=== PATIENT | female | born 1955 | race Caucasian/White ===

== ENCOUNTER → 2016-05-05 | Outpatient (CLI) | payer BC ==
[~2016-05-05] MED LIST: ARMOUR THYROID60 MG PO; ASPIR 8181 MG PO; LISINOPRIL40 MG PO; METOPROLOL TART25 MG PO; PRILOSEC OTC20 MG PO; REGLAN10 MG PO; SYNTHROID25 MCG PO
== END ==
LOC: MAMO 08:50
DX: Z12.31 Encounter for screening mammogram for malignant neoplasm of breast (principal)
CPT/HCPCS: G0202

== ENCOUNTER → 2016-07-30 | Outpatient (CLI) | payer BC | LOC: EMI 09:39 | DX: M25.512 Pain in left shoulder (principal); R93.7 Abnormal findings on diagnostic imaging of other parts of musculoskeletal system | CPT/HCPCS: 73221 ==

== ENCOUNTER → 2020-10-09 | Outpatient (CLI) | payer BC | LOC: MAMO 07:40 | DX: Z12.31 Encounter for screening mammogram for malignant neoplasm of breast (principal); N64.89 Other specified disorders of breast | CPT/HCPCS: 77063; 77067 ==

== ENCOUNTER → 2020-10-12 | Outpatient (CLI) | payer BC | LOC: EXRD 08:51 | DX: Z13.820 Encounter for screening for osteoporosis (principal); M81.0 Age-related osteoporosis without current pathological fracture | CPT/HCPCS: 77080 ==

== ENCOUNTER → 2021-01-18 | Outpatient (CLI) | payer BC ==
[2021-01-18 10:24] LABS: HEMOGLOBIN 12.5 gm/dl (12.3-15.3); RED BLOOD COUNT 4.18 M/UL (4.00-5.10); WHITE BLOOD COUNT 7.8 K/UL (4.5-11.0)
[2021-01-19 07:10] LABS: ANTISTREPTOLYSIN O AB 123.8 IU/mL (0.0-200.0); RHEUMATOID ARTHRITIS FACTOR <10.0 IU/mL (<14.0); THYROID PEROXIDASE (TPO) AB 9 IU/mL (0-34); VITAMIN D, 25-HYDROXY 33.1 ng/mL (30.0-100.0)
[2021-01-19 11:13] LABS: CREATININE, URINE 111.8 mg/dL (Not Estab.); MICROALB/CREAT RATIO <3 (0-29)
[2021-01-19 16:14] LABS: THYROGLOBULIN ANTIBODY <1.0 IU/mL (0.0-0.9)
== END ==
LOC: LAB 09:03
PROVIDERS: Nurse Practitioner Family
DX: Z13.220 Encounter for screening for lipoid disorders (principal); M51.17 Intervertebral disc disorders with radiculopathy, lumbosacral region; M25.511 Pain in right shoulder; M47.816 Spondylosis without myelopathy or radiculopathy, lumbar region; M25.50 Pain in unspecified joint; M54.12 Radiculopathy, cervical region; R53.83 Other fatigue; K31.84 Gastroparesis; E55.9 Vitamin D deficiency, unspecified; N18.30 Chronic kidney disease, stage 3 unspecified; I12.9 Hypertensive chronic kidney disease with stage 1 through stage 4 chronic kidney disease, or unspecified chronic kidney disease; N39.0 Urinary tract infection, site not specified
CPT/HCPCS: 36415; 72040; 72100; 73030; 80053; 80061; 81001; 82043; 82570; 82607; 84439; 84443; 84550; 85025; 85652; 86038; 86060; 86140; 86376; 86431; 86800

== ENCOUNTER → 2021-02-01 | Outpatient (CLI) | payer BC | LOC: EMI 08:00 | DX: M54.12 Radiculopathy, cervical region (principal); R29.2 Abnormal reflex | CPT/HCPCS: 72141 ==

== ENCOUNTER → 2021-02-01 | Outpatient (CLI) | payer BC | LOC: EXRD 09:27 | DX: N18.30 Chronic kidney disease, stage 3 unspecified (principal) | CPT/HCPCS: 76536; 76705; 76775 ==

== ENCOUNTER → 2021-04-19 | Outpatient (CLI) | payer BC | LOC: LBRF 15:54 | DX: N39.0 Urinary tract infection, site not specified (principal) | CPT/HCPCS: 87086 ==

== ENCOUNTER → 2021-08-05 | Day surgery (SDC) | payer BC ==
[~2021-08-05] VITALS: Ht 162.6 cm; Wt 93.9 kg
[~2021-08-05] MED LIST changes: +CEPHALEXIN250 MG PO; +COZAAR100 MG PO; +CYCLOBENZAPRINE5 MG PO; +HYDROCODON-ACE1 EAC4 PO; +LINZESS72 MCG PO; +NORVASC5 MG PO; +PROTONIX 40 MG40 M1 PO; +SUCRALFATE 100 MG/ML PO; +TOPROL XL25 MG PO; +TRAZODONE HCL50 MG PO
== END | disposition home or self-care (01) ==
LOC: OR 07:25
DX: K81.1 Chronic cholecystitis (principal); K66.0 Peritoneal adhesions (postprocedural) (postinfection); J45.909 Unspecified asthma, uncomplicated; K21.9 Gastro-esophageal reflux disease without esophagitis; I12.9 Hypertensive chronic kidney disease with stage 1 through stage 4 chronic kidney disease, or unspecified chronic kidney disease; N18.30 Chronic kidney disease, stage 3 unspecified; Z88.1 Allergy status to other antibiotic agents; Z88.2 Allergy status to sulfonamides; Z88.8 Allergy status to other drugs, medicaments and biological substances; Z79.82 Long term (current) use of aspirin; Z87.891 Personal history of nicotine dependence
CPT/HCPCS: C1729; J0690; J1100; J1885; J2001; J2250; J2405; J2704; J2710; J3010